=== PATIENT | male | born 1990 | race Caucasian/White ===

== ENCOUNTER 2019-12-01 11:52 | Emergency (ER) | payer OTHER ==
[~2019-12-01] VITALS: Ht 182.9 cm; Wt 145.6 kg
[2019-12-01 12:04] VITALS: BP 126/90
--- NOTE | 2019-12-01 12:06 | NUR ---
PT TO [facility]
--- NOTE | 2019-12-01 12:30 | NUR ---
PT AMBULATED TO BED 08
--- NOTE | 2019-12-01 12:43 | NUR ---
XR AT BEDSIDE.
--- NOTE | 2019-12-01 12:45 | NUR ---
29 Y/M PRESENTS TO ED WITH LINEAR LACERATION OF L PINKY APROX 1 INCH WIDE. LACERATION IS CLEAN WITH SMALL AMOUNT BLOOD NOTED. PT WAS MOWING LAWN AND PINKY WAS CUT WITH A PALM TREE. PT REPORTS PULLING OUT TWO PIECES OF THE PALM TREE AND UNSURE IF ANY FB IN STILL UNDERNEATH THE SKIN. PT REPORTS 4/10 THROBBING PAIN, NON RADIATING. PULSES 2+ THROUGHOUT. FULL ROM OF L WRIST AND L HAND. PT UNABLE TO BEND L PINKY HE IS WORRIED OF TEARING THE LAC. A&O X 4, NO DISTRESS, LUNGS CLEAR, S1S2 PRESENT. PMH- ASTHMA, PREDIABETIC, HYPERCHOLESTEROLEMIA. RX- VIT D NKDA
--- NOTE | 2019-12-01 12:53 | NUR ---
DR. MCGEE AT BEDSIDE.
--- NOTE | 2019-12-01 13:49 | NUR ---
PT AMBULATED TO ER LOBBY TO CONTINUE WAITING FOR DISCHARGE
[2019-12-01 14:46] VITALS: BP 110/64
--- NOTE | 2019-12-01 14:46 | NUR ---
Patient discharged with v/s stable. Written and verbal after care instructions given and explained to parent/guardian. Parent/Guardian verbalized understanding. Ambulatorysteady gait. All questions addressed prior to discharge. Advised to follow up with PMD.
== END 2019-12-01 14:46 | disposition home or self-care (01) ==
LOC: MED 11:52
DX: S61.236A Puncture wound without foreign body of right little finger without damage to nail, initial encounter (principal); E78.5 Hyperlipidemia, unspecified; J45.909 Unspecified asthma, uncomplicated; X58.XXXA Exposure to other specified factors, initial encounter; Y93.89 Activity, other specified; Y92.89 Other specified places as the place of occurrence of the external cause; Y99.8 Other external cause status
CPT/HCPCS: 73130; 90471; 90715; 99283; Q0092

== ENCOUNTER 2020-11-05 07:52 | Emergency (ER) | payer OTHER ==
[~2020-11-05] VITALS: Ht 180.3 cm; Wt 158.8 kg
[2020-11-05 08:02] VITALS: BP 154/107
--- NOTE | 2020-11-05 08:04 | NUR ---
Pt taken to tent 1 for further evaluation.
[2020-11-05] MEDS ORDERED: KETOROLAC 60 MG/2 ML VIAL IM ONE (08:10)
--- NOTE | 2020-11-05 08:10 | NUR ---
30 y/o male c/o right flank pain 7/10 X4days sore initially now worsening with deep breathing and walking. Labored shallow breathing, O2 at 97% RA. Denies N/V, fever/chills. PMH: HTN NKA
--- NOTE | 2020-11-05 08:13 | NUR ---
Dr. Mendoza with pt for evaluation.
[2020-11-05 08:33] VITALS: BP 154/107
--- NOTE | 2020-11-05 08:34 | NUR ---
Patient discharged with v/s stable. Written and verbal after care instructions given and explained. Patient alert, oriented and verbalized understanding of instructions. Ambulatory with steady gait. All questions addressed prior to discharge. ID band removed. Patient advised to follow up with PMD. Rx of prednisone 20mg tab, 3tabs one a day PO, and motrin 800mg 1 tab TID PO PRN given. Patient educated on indication of medication including possible reaction and side effects. Opportunity to ask questions provided and answered.
== END 2020-11-05 08:34 | disposition home or self-care (01) ==
LOC: MED 07:52
DX: R05 Cough (principal); R10.9 Unspecified abdominal pain; J45.909 Unspecified asthma, uncomplicated; I10 Essential (primary) hypertension
CPT/HCPCS: 96372; 99283; J1885